=== PATIENT | female | born 1975 | race American Indian/Alaskan Native ===

== ENCOUNTER 2017-10-11 12:48 | Emergency (ER) | payer MEDICARE ==
--- NOTE | 2017-10-11 13:32 | Emergency Department Report ---
Chief Complaint: Urogenital-Female Stated Complaint: VAGINAL DISCHARGE Time Seen by Provider: 10/11/17 13:32 - HPI History of Present Illness: VSS NAD AMBULATORY NON TOXIC URINE SENT - Exam Vital Signs: Vital Signs 10/11/17 12:56 Temperature 98.1 F Pulse Rate 71 Respiratory 18 Rate Blood Pressure 143/91 O2 Sat by Pulse 99 Oximetry MSE screening note: Focused history and physical exam performed. Due to findings the following was ordered: ED Disposition for MSE Condition: Stable
[2017-10-11 13:49] LABS: Bacteria,Urine 1+ /HPF (Negative); Bilirubin,Urine NEG (Negative); Blood,Urine SM (Negative); Color,Urine Yellow (Yellow); Mucus,Urine FEW /HPF; Nitrite,Urine NEG (Negative); Protein,Urine <15 mg/dL mg/dL (Negative); Urobilinogen,Urine < 2.0 mg/dL (<2.0)
[2017-10-11 13:51] LABS: HCG Qualitative,Urine Negative (Negative)
[2017-10-11 16:18] VITALS: BP 138/88
[2017-10-11] MEDS ORDERED: ZITHROMAX PO ONE (16:55)
[2017-10-11] MEDS ORDERED: ROCEPHIN IM ONE (16:55)
[2017-10-11] MEDS ORDERED: XYLOCAINE 1% MPF 5 mL INFILTRATI ONE (16:55)
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
== END 2017-10-11 17:43 | disposition home or self-care (01) ==
LOC: ED 12:48
DX: A64 Unspecified sexually transmitted disease (principal); I10 Essential (primary) hypertension; E11.9 Type 2 diabetes mellitus without complications; C49.9 Malignant neoplasm of connective and soft tissue, unspecified
CPT/HCPCS: 81001; 81025; 87076; 87086; 87186; 87210; 87591; 96372; 99284; J0696

== ENCOUNTER 2019-06-27 08:59 | Emergency (ER) | payer MEDICARE ==
[2019-06-27 09:04] VITALS: BP 145/90
--- NOTE | 2019-06-27 10:36 | XRay Report ---
LEFT HAND 3 VIEWS INDICATION: left hand pain. COMPARISON: No relevant prior imaging study available. FINDINGS: There is an oblique spiral-type fracture through the proximal shaft of the left ring finger metacarpa l. This is minimally displaced. No additional fractures are seen. Osteoarthrosis changes are noted. IMPRESSION: 1. Left ring finger metacarpal fracture as above. Signer Name: Aaron Simon MD Signed: 06/27/2019 10:32 AM Workstation Name: [id number]
[2019-06-27] MEDS ORDERED: IBUPROFEN PO ONE (10:39)
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
== END 2019-06-27 11:52 | disposition home or self-care (01) ==
LOC: ED 08:59
DX: S62.325A Displaced fracture of shaft of fourth metacarpal bone, left hand, initial encounter for closed fracture (principal); I10 Essential (primary) hypertension; E11.9 Type 2 diabetes mellitus without complications; Z79.899 Other long term (current) drug therapy; X50.1XXA Overexertion from prolonged static or awkward postures, initial encounter; Y93.89 Activity, other specified; Y92.89 Other specified places as the place of occurrence of the external cause; Y99.8 Other external cause status
CPT/HCPCS: 99283

== ENCOUNTER 2019-11-06 07:22 | Emergency (ER) | payer OTHER, MEDICARE ==
[2019-11-06 07:43] VITALS: BP 145/92
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
== END 2019-11-06 11:21 | disposition home or self-care (01) ==
LOC: ED 07:22
DX: S39.012A Strain of muscle, fascia and tendon of lower back, initial encounter (principal); S80.02XA Contusion of left knee, initial encounter; I10 Essential (primary) hypertension; E11.9 Type 2 diabetes mellitus without complications; V49.49XA Driver injured in collision with other motor vehicles in traffic accident, initial encounter; Y93.89 Activity, other specified; Y92.488 Other paved roadways as the place of occurrence of the external cause; Y99.8 Other external cause status
CPT/HCPCS: 72100; 99283